=== PATIENT | male | born 1965 | race African-American/Black ===

== ENCOUNTER 2017-04-29 07:44 | Emergency (ER) | payer SELFPAY ==
[2017-04-29 07:54] VITALS: BP 144/98; PULSE 98; TEMP 97.8; BMI 30.1
--- NOTE | 2017-04-29 07:58 | PDOC ---
History of Present Illness - General Chief Complaint: Sore Throat Stated Complaint: SORE THROAT Time Seen by Provider: 04/29/17 07:48 History Source: Patient Exam Limitations: No Limitations - History of Present Illness Initial Comments: 04/29/17 07:53 51 y/o male with sore throat and cough fro 3 days. No fever or chills. Took some Tylenol. No traveling or sick contacts. Denies SOB or chest pain. No N/V/d/ C. Severity: mild Associated Symptoms: reports: cough Past History - Past Medical History Allergies/Adverse Reactions: Allergies Allergy/AdvReac Type Severity Reaction Status Date / Time No Known Allergies Allergy Verified 04/29/17 07:45 Home Medications: Ambulatory Orders Azithromycin [Zithromax -] 250 mg PO UTDICT #6 tab 04/29/17 Review of Systems - Review of Systems Able to Perform ROS?: Yes Is the patient limited Mongolian proficient: No Constitutional: No: Chills, Fever HEENTM: Yes: Throat Pain Respiratory: Yes: Cough, Productive cough. No: Shortness of Breath, Wheezing Cardiac (ROS): No: Chest Pain ABD/GI: No: Nausea, Vomiting Neurological: No: Headache All Other Systems: Reviewed and Negative *Physical Exam - Physical Exam General Appearance: Yes: Nourished, Appropriately Dressed. No: Apparent Distress HEENT: positive: EOMI, SHANTANU, Normal ENT Inspection, Normal Voice, Pharynx Normal Neck: positive: Trachea midline, Normal Thyroid, Supple. negative: Tender, Rigid, Carotid bruit Respiratory/Chest: positive: Lungs Clear, Normal Breath Sounds. negative: Chest Tender, Respiratory Distress Cardiovascular: positive: Regular Rhythm, Regular Rate, S1, S2. negative: Edema , JVD, Murmur Vascular Pulses: Femoral (R): 4+, Femoral (L): 4+, Carotid (R): 4+, Carotid (L) : 4+, Dorsalis-Pedis (R): 4+, Doralis-Pedis (L): 4+ Gastrointestinal/Abdominal: positive: Normal Bowel Sounds, Flat, Soft. negative : Tender, Organomegaly, Pulsatile Mass Lymphatic: negative: Adenopathy, Tenderness, Other Musculoskeletal: positive: Normal Inspection. negative: CVA Tenderness Extremity: positive: Normal Capillary Refill, Normal Inspection, Normal Range of Motion Integumentary: positive: Normal Color, Dry, Warm Neurologic: positive: shredded filler cigar maker machine II-XII NML intact, Fully Oriented, Alert, Normal Mood/ Affect, Normal Response, Motor Strength 10/20 ED Treatment Course - ADDITIONAL ORDERS Additional order review: 04/29/17 07:55 Pt appears to have an URI Will place on Zithromax as directed Patient is in agreement with plan *DC/Admit/Observation/Transfer Diagnosis at time of Disposition: Upper respiratory infection Qualifiers: URI type: unspecified URI Qualified Code(s): J06.9 - Acute upper respiratory infection, unspecified - Discharge Dispostion Disposition: HOME Condition at time of disposition: Good - Referrals - Patient Instructions Printed Discharge Instructions: DI for Viral Upper Respiratory Infection -- Adult Additional Instructions: Fluids, rest, Tylenol Robitussin as needed for cough Z-pack as directed If worsen return to ER - Post Discharge Activity
== END 2017-04-29 08:25 | disposition home or self-care (01) ==
LOC: FER 07:44
DX: J06.9 Acute upper respiratory infection, unspecified (principal)
CPT/HCPCS: 99281-25